=== PATIENT | female | born 1970 | race Caucasian/White ===

== ENCOUNTER 2018-04-21 13:29 | Day surgery (SDC) | payer OTHER ==
[2018-04-21] MEDS ORDERED: LIDOCAINE 2% (SDV) 5 ML INJ (14:35)
[2018-04-21] MEDS ORDERED: PROPOFOL 60 ML (15:09)
== END 2018-04-21 16:16 | disposition home or self-care (01) ==
LOC: GIL 13:29
DX: Z12.11 Encounter for screening for malignant neoplasm of colon (principal); D12.5 Benign neoplasm of sigmoid colon; K57.90 Diverticulosis of intestine, part unspecified, without perforation or abscess without bleeding; K64.8 Other hemorrhoids
CPT/HCPCS: 45380; 88305